=== PATIENT | male | born 1975 | race African-American/Black ===

== ENCOUNTER 2016-10-31 13:45 | Emergency (ER) | payer BC ==
[~2016-10-31] VITALS: Ht 175.3 cm; Wt 62.7 kg
[~2016-10-31 13:45] MED LIST: HYDROCODONE/APAP; LORTAB 7.5/5001 TAB; NO HOME MEDICATIONS
[2016-10-31 13:57] VITALS: TEMP 97.7
[2016-10-31 14:27] LABS: BASO % 0.6 % (0.0-2.0); EOS % 0.1 % (0-4.0); GRAN # 5.8 (1.4-6.5); GRAN % 81.1 % (42.2-75.2); HEMATOCRIT 47.8 % (42.0-52.0); HEMOGLOBIN 15.7 g/dl (13.5-18.0); LYMPH # 1.1 (1.2-3.4); LYMPH % 15.2 % (20.0-51.0); MEAN CELL VOLUME 85 fl (80.0-100.0); MEAN CORPUSCULAR HEMOGLOBIN 28 pg (27.0-31.0); MEAN CORPUSCULAR HGB CONC 33 g/dl (33.0-37.0); MEAN PLATELET VOLUME 8.1 fl (7.4-10.4); MONO # 0.2 (0.1-0.6); MONO % 2.7 % (1.7-9.3); PLATELET COUNT 453 K/mm3 (130-400); RED BLOOD COUNT 5.61 M/mm3 (4.20-5.60); REDCELL DISTRIBUTION WIDTH-CV 15.3 % (11.5-14.5); WHITE BLOOD COUNT 7.1 K/mm3 (4.8-10.8)
[2016-10-31] MEDS ORDERED: PHENERGAN 25 TA25 MG PO (14:33)
[2016-10-31] MEDS ORDERED: ZOFRAN ODT8 MG PO (14:34)
[2016-10-31] MEDS ORDERED: CARAFATE 1GM1 G PO (14:34)
[2016-10-31] MEDS ORDERED: ZANTAC 150150 MG PO (14:34)
[2016-10-31 15:10] LABS: ADJUSTED CALCIUM 9.3 mg/dL (8.4-10.2); ALANINE AMINOTRANSFERASE 21 U/L (21-72); ALBUMIN 5.2 gm/dL (3.5-5.0); ALKALINE PHOSPHATASE 109 U/L (50-136); BLOOD UREA NITROGEN 20 mg/dL (9-20); CALCIUM 10.3 mg/dL (8.4-10.2); CARBON DIOXIDE 21 mmol/L (22-30); CREATININE, serum 1.18 mg/dL (0.66-1.25); GLUCOSE 94 mg/dL (74-106); LIPASE 47 U/L (23-300); POTASSIUM 4.1 mmol/L (3.4-5.0); SODIUM 139 mmol/L (137-145); TOTAL PROTEIN 8.9 gm/dL (6.4-8.2)
[2016-10-31 15:16] LABS: ANION GAP 19 mmol/L (7-16); C-REACTIVE PROTEIN < 0.5 mg/dL (0.0-0.9); CHLORIDE 99 mmol/L (98-107)
[2016-10-31 15:20] LABS: TROPONIN-I < 0.012 ng/mL (0.000-0.034)
[2016-10-31 15:41] LABS: PH 5 (5-8); SQUAMOUS EPITHELIAL None Seen /hpf; URINE APPEARANCE Clear; URINE BACTERIA Rare /hpf; URINE BILIRUBIN Negative (NEGATIVE); URINE BLOOD Negative (NEGATIVE); URINE COLOR Yellow; URINE GLUCOSE Negative (NEGATIVE); URINE KETONE 2+ (NEGATIVE); URINE UROBILINOGEN Negative (NEGATIVE)
[2016-10-31] MEDS ORDERED: FLAGYL500 MG PO (16:16)
[2016-10-31 16:28] VITALS: BP 128/76; PULSE 68
== END 2016-10-31 16:29 | disposition home or self-care (01) ==
LOC: COL.ER 13:45
PROVIDERS: Emergency Medicine
DX: K52.9 Noninfective gastroenteritis and colitis, unspecified (principal); F32.9 Major depressive disorder, single episode, unspecified; F17.210 Nicotine dependence, cigarettes, uncomplicated; F12.90 Cannabis use, unspecified, uncomplicated
CPT/HCPCS: J1170; J2405; J7030; Q9967

== ENCOUNTER → 2016-11-07 | Outpatient (CLI) | payer BC ==
[~2016-11-07] MED LIST changes: +CARAFATE 1GM1 G PO; +DEXILANT30 MG; +FLAGYL500 MG PO; +PHENERGAN 25 TA25 MG PO; +ZANTAC 150150 MG PO; +ZOFRAN ODT8 MG PO
== END ==
LOC: COL.RAD 10:48
DX: N20.0 Calculus of kidney (principal); N40.0 Benign prostatic hyperplasia without lower urinary tract symptoms; N28.1 Cyst of kidney, acquired; R31.9 Hematuria, unspecified

== ENCOUNTER 2016-12-06 06:17 | Day surgery (SDC) | payer BC ==
[~2016-12-06] VITALS: Ht 170.2 cm; Wt 59.5 kg
[~2016-12-06 06:17] MED LIST changes: -DEXILANT30 MG
[2016-12-06 07:01] VITALS: BP 119/85; PULSE 83; TEMP 98.7
[2016-12-06] MEDS ORDERED: DEXILANT30 MG (07:22)
[2016-12-06 08:15] VITALS: BP 114/78; PULSE 65
[2016-12-06 08:30] VITALS: BP 115/83; PULSE 49
[2016-12-06 08:45] VITALS: BP 110/75; PULSE 52
== END 2016-12-06 09:04 | disposition home or self-care (01) ==
LOC: SDCO 06:17
DX: K21.9 Gastro-esophageal reflux disease without esophagitis (principal); K30 Functional dyspepsia; F17.210 Nicotine dependence, cigarettes, uncomplicated; R19.4 Change in bowel habit; R19.7 Diarrhea, unspecified; R10.9 Unspecified abdominal pain; R93.3 Abnormal findings on diagnostic imaging of other parts of digestive tract
CPT/HCPCS: J2250; J2405; J3010; J7030

== ENCOUNTER → 2017-11-06 | Outpatient (CLI) | payer BC ==
[~2017-11-06] MED LIST changes: +DEXILANT30 MG; +ZANTAC 7575 MG PO
== END ==
LOC: COL.RAD 11:53
DX: N20.0 Calculus of kidney (principal); R63.4 Abnormal weight loss

== ENCOUNTER → 2017-11-19 | Outpatient (CLI) | payer BC | LOC: COL.RAD 11:36 | DX: R63.4 Abnormal weight loss (principal); R10.9 Unspecified abdominal pain; R11.2 Nausea with vomiting, unspecified; R19.7 Diarrhea, unspecified | CPT/HCPCS: A9537 ==

== ENCOUNTER 2018-10-23 12:06 | Outpatient (CLI) | payer BC ==
[~2018-10-23] VITALS: Ht 172.7 cm; Wt 55.0 kg
[2018-10-23 12:25] VITALS: BP 130/98; PULSE 105; TEMP 98.5
--- NOTE | 2018-10-23 14:00 | NUR ---
Bag #1 finished infusing and Bag #2 started at this time. Patient is resting comfortably in bed with call light in reach. Denies needing or wanting anything at this time.
--- NOTE | 2018-10-23 15:00 | NUR ---
Infusion completed at this time. Patient reports that he feels much better. Denies weakness and reports that he is ready to go home.
--- NOTE | 2018-10-23 15:10 | NUR ---
Patient dismissed to ER enterance to private vehicle (patient's girlfriend picked him up). Patient leaves thanking staff for services.
[2018-10-23] MEDS ORDERED: PAMELOR 25MG25 MG PO (15:30)
[2018-10-23] MEDS ORDERED: PRILOSEC 20MG20 MG PO (15:33)
== END 2018-10-23 15:10 | disposition home or self-care (01) ==
LOC: EUO 12:06
DX: K52.9 Noninfective gastroenteritis and colitis, unspecified (principal)
CPT/HCPCS: J7030

== ENCOUNTER → 2019-11-15 | Outpatient (CLI) | payer BC ==
[~2019-11-15] MED LIST changes: +PAMELOR 25MG25 MG PO; +PRILOSEC 20MG20 MG PO
== END ==
LOC: COL.RAD 08:00
DX: K21.9 Gastro-esophageal reflux disease without esophagitis (principal); N20.0 Calculus of kidney

== ENCOUNTER → 2019-11-23 | Outpatient (CLI) | payer BC | LOC: COL.RAD 15:28 | DX: J98.4 Other disorders of lung (principal) ==

== ENCOUNTER 2023-02-05 08:55 | Observation (INO) | payer BC ==
[~2023-02-05] VITALS: Ht 170.2 cm; Wt 53.4 kg
[2023-02-05] VITALS (7 sets, daily range): BP systolic 101–121; BP diastolic 72–83; PULSE 53–79; TEMP 98.2–99
[2023-02-05 10:02] LABS: BASO % 0.2 % (0.0-2.0); GRAN # 6.1 K/mm3 (1.4-6.5); GRAN % 72.4 % (42.2-75.2); HEMATOCRIT 46.6 % (42.0-52.0); HEMOGLOBIN 15.9 g/dl (13.5-18.0); LYMPH # 1.5 K/mm3 (1.2-3.4); LYMPH % 17.4 % (20.0-51.0); MEAN CELL VOLUME 84 fl (80.0-100.0); MEAN CORPUSCULAR HEMOGLOBIN 29 pg (27-31); MEAN CORPUSCULAR HGB CONC 34 g/dl (33.0-37.0); MONO # 0.8 K/mm3 (0.1-0.6); MONO % 9.9 % (1.7-9.3); PLATELET COUNT 428 K/mm3 (130-400); RED BLOOD COUNT 5.57 M/mm3 (4.20-5.60); REDCELL DISTRIBUTION WIDTH-CV 14.2 % (11.5-14.5)
[2023-02-05 10:07] LABS: PROTHROMBIN TIME 11.3 SECONDS (9.7-12.8)
[2023-02-05 10:22] LABS: ALBUMIN 5.3 gm/dL (3.5-5.0); BILIRUBIN,TOTAL 0.9 mg/dL (0.2-1.2); C-REACTIVE PROTEIN 0.36 mg/dL (0.00-0.50); CREATININE, serum 3.08 mg/dL (0.72-1.25); POTASSIUM 3.6 mmol/L (3.5-4.5); TOTAL PROTEIN 9.3 gm/dL (6.2-8.1)
[2023-02-05 11:32] LABS: COLLECTION METHOD CLEAN CATCH
[2023-02-05 12:16] LABS: URINE APPEARANCE Clear (CLEAR/HAZY); URINE BLOOD 1+ (NEGATIVE); URINE COLOR Yellow (YELLOW); URINE GLUCOSE Negative (NEGATIVE); URINE KETONE Negative (NEGATIVE); URINE NITRATE Negative (NEGATIVE); URINE PROTEIN(semi-quant) 1+ (NEGATIVE); URINE UROBILINOGEN 0.2 E.U/dL (0.2-1.0)
[2023-02-05 12:17] LABS: MUCOUS Present (NOT PRESENT); URINE BACTERIA Occasional /hpf (NONE SEEN)
--- NOTE | 2023-02-05 13:27 | NUR ---
Pt. arrived to the floor. Pt. is A&OX3, assessment complete. INT to lt. forearm patent, Started IV fluids to site. Pt. reports pain at a 10 on pain scale, gave toradol. Pt. denies further needs at this time.
[2023-02-05] MEDS ORDERED: FLOMAX 0.40.4 MG/CAP PO (17:21)
[2023-02-05] MEDS ORDERED: PERCOCET 325 MG1 TA2 PO (17:22)
--- NOTE | 2023-02-05 18:28 | NUR ---
Pt just arrived to the floor from [facility]. Pt is alert and oriented although drowsy. Pt has no complaints of pain at this time. States that he is not nauseated, but is not very hungry. Pt has fresh ice water and jello at bedside. Informed pt that he does have orders to go home, but that he needs to stay for about an hour, vital signs stable, eat and void without difficulty prior to going home. Pt does have someone at bedside with him. Educated on room service. Call light within reach
--- NOTE | 2023-02-05 19:10 | NUR ---
Pt reported that he tried to void in the urinal but was not able to. Encouraged pt to go in to the restroom to try and void. Unhooked pt from VS machine. INT'd IVF as the bag was empty and pt was tolerating fluids. Pt refused for me to help him in to the bathroom. PT does have SO in the room camilo stated she would help him. Inforced assistance standing to ensure he was not dizzy and then stay with him in to the restroom until stable. Both stated they understood.
--- NOTE | 2023-02-05 19:42 | NUR ---
RECEIVED CHANGE OF SHIFT REPORT FROM DAY SHIFT RN.
--- NOTE | 2023-02-05 20:30 | NUR ---
PATIENT INFORMED STAFF THAT HE VOIDED, OBSERVED YELLOW WITH REDDISH TINGED URINE IN STOOL. PATIENT REPORTED HAD BURNING DISCOMFORT PRIOR TO VOIDING THAT SUBSIDED DURING URINATION. PATIENT REPORTED HE FELT HE EMPTIED OUT HIS BLADDER WELL.
--- NOTE | 2023-02-05 20:40 | NUR ---
REVIEWED DISCHARGE INSTRUCTIONS WITH PATIENT AND VISITOR (CURRENTLY PRESENT) WITH NO FURTHER QUESTIONS OR CONCERNS REPORTED.
--- NOTE | 2023-02-05 20:45 | NUR ---
PATIENT DISMISSED PER W/C OFF UNIT ACCOMPANIED BY STAFF PCT, PATIENT TO BE TRANSPORTED TO HOME PER PRIVATE VEHICLE.
== END 2023-02-05 20:45 | disposition home or self-care (01) ==
LOC: COL.ER 08:55 → SURG 11:22
PROVIDERS: Family Medicine; ADMIT Urology
DX: N13.2 Hydronephrosis with renal and ureteral calculous obstruction (principal); F17.210 Nicotine dependence, cigarettes, uncomplicated
CPT/HCPCS: C1769; C2617; G0378; J0360; J0690; J1100; J1885; J2270; J2405; J2704; J3010; J7030; J7120